=== PATIENT | female | born 1985 ===

== ENCOUNTER 2024-10-27 11:03 | Outpatient (RCR) | payer BC, SELFPAY ==
--- NOTE | 2024-10-27 12:02 | OPREHPOC ---
Outpatient Therapy Plan of Care This is a Multidisciplinary Plan of Care that may contain components documented by all disciplines (PT, OT, and ST.) PT Problem 1 PT Problem #1 Knowledge Deficit PT Goal 1 Goal / Goal Update 1*independent with HEP 2* correct body mechanics with lifting from the floor Target Visit 8 PT Problem 2 PT Problem #2 Pain PT Goal 1 Goal / Goal Update 1* pt report pain rating of 5/10 at worst 2* pt report with sleeping, awaken 1x/night due to pain Target Visit 8 PT Problem 3 PT Problem #3 Impaired Flexibility PT Goal 1 Goal / Goal Update *increase flexibility over hips and trunk, to decrease pull on lumbar spine hamstring length with supine SLR 1* R 70' 2* L 60' anterior hip/quad length with prone knee flexion to 130' 3* R 4* L 5* with R supine piriformis stretch, report R=L Target Visit 8 PT Problem 4 PT Problem #4 Impaired Strength PT Goal 1 Goal / Goal Update *increase trunk/abdominal strength to gross 4+/5 to improve stability to spine Target Visit 8
--- NOTE | 2024-10-27 12:02 | PTOPEVAL1 ---
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, after 30 minutes of standing, pain worse; unable to work 2 days in a row; shifts of 4 hours only due to pain; have not had PT in the past recent CT of abdomen/kidney stones report- per pt- scoliosis and degeneration of back; activity: independent with self care and light home tasks, avoids bending forward and lifting due to back pain Reported Pain Level Pain Score 5: Self Report Additional Pain Score Comments pain range in the past week 5-8/10; uncomfortable, L anterior hip, bilateral lumbar; with standing, pain also over thoracic spine increase pain: standing at work ~ 30 min; sitting ~ 30-45 minutes with shifting in seat; decrease pain: lie down, aleve have not used heat or ice report with sleeping, take aleve prior to bed time, awaken 2-3x/night due to pain Assessment PT Clinical Summary Roxanna has the diagnosis of back pain. She has a history of chronic back pain and has not had PT treatment in the past. Pain is increased with standing and sleep is disrupted due to pain. Working time is limited to 4 hour shift due to pain. Self assessment with the Back Index rating of 50% limitation in activity level. Medical history includes chronic back pain, recent kidney stones and stent placement, R knee, L ankle and bilateral foot pain. With the evaluation: she has increase lower thoracic/upper lumbar extension curve with concave curve to R; tightness over bilateral hamstrings; weakness of trunk/abdominals; Skilled PT services are indicated for modalities to decrease pain, therapeutic exercises to increase strength and flexibility of trunk and hips, with education of HEP and body mechanics/ posture. Plan of Care Interventions Electrical Stimulation,Hot Pack/Cold Pack,Manual Therapy,Mechanical Traction,Neuro Re-education, Patient/Caregiver Education,Therapeutic Activities ,Therapeutic Exercise,Ultrasound,Other Other Interventions taping PT Services Indicated Yes Treatment Frequency and 1-2x/wk for 8 visits Duration These treatments will address the objective and functional deficits as defined above. The patient will be advanced safely and appropriately in order for the patient to progress towards his/her prior level of function. Additional exercises will be introduced and as well as a comprehensive home exercise program upon discharge, if needed, ?to ensure carryover of functional gains achieved in the clinic. This treatment plan has been reviewed and agreement upon by the patient.
--- NOTE | 2024-11-16 09:54 | OPREHPOC ---
Outpatient Therapy Plan of Care This is a Multidisciplinary Plan of Care that may contain components documented by all disciplines (PT, OT, and ST.) PT Problem 1 PT Problem #1 Knowledge Deficit PT Goal 1 Goal / Goal Update 1*independent with HEP 2* correct body mechanics with lifting from the floor 11-16-24 d/c goals not addressed Target Visit 8 PT Problem 2 PT Problem #2 Pain PT Goal 1 Goal / Goal Update 1* pt report pain rating of 5/10 at worst 2* pt report with sleeping, awaken 1x/night due to pain 11-16-24 d/c goals not addressed Target Visit 8 PT Problem 3 PT Problem #3 Impaired Flexibility PT Goal 1 Goal / Goal Update *increase flexibility over hips and trunk, to decrease pull on lumbar spine hamstring length with supine SLR 1* R 70' 2* L 60' anterior hip/quad length with prone knee flexion to 130' 3* R 4* L 5* with R supine piriformis stretch, report R=L 11-16-24 d/c goals not addressed Target Visit 8 PT Problem 4 PT Problem #4 Impaired Strength PT Goal 1 Goal / Goal Update *increase trunk/abdominal strength to gross 4+/5 to improve stability to spine 11-16-24 d/c goals not addressed Target Visit 8
--- NOTE | 2024-11-16 09:55 | PTOPDC ---
Assessment and note entered by Laila Salazar, PT Assessment Status Discharge - Pt Not Present ICD-10 Condition Codes (PT) Pain in low back M54.50 Onset May 2024 Subjective Information Roxanna called and canceled PT here; wants to go closer to home for PT. Assessment PT Clinical Summary Roxanna received the PT evaluation on October 27, then she called and canceled PT here, wanting to find a therapy provider closer to her home. Discharge PT. The goals were not addressed. Plan of Care PT Services Indicated No
== END 2024-11-16 12:00 | disposition home or self-care (01) ==
LOC: ANHPT 11:03
PROVIDERS: PCP Nurse Practitioner Family; Visit Provider Nurse Practitioner Family
DX: M54.9 Dorsalgia, unspecified (principal)
CPT/HCPCS: 97110; 97161; 97530